=== PATIENT | male | born 1960 | race Caucasian/White ===

== ENCOUNTER 2019-04-19 07:24 | Day surgery (SDC) | payer OTHER ==
[~2019-04-19] VITALS: Ht 160 cm; Wt 61.9 kg
[2019-04-19 07:47] VITALS: BP 118/86; PULSE 83; TEMP 97.9
[2019-04-19 09:10] VITALS: BP 124/85; PULSE 82; TEMP 97
--- NOTE | 2019-04-19 09:10 | NUR ---
Pt arrived to post procedure room and received by LEISA Russell. Was given blueberry muffin and juice. VSS and FERNIEL.
[2019-04-19 09:25] VITALS: BP 123/81; PULSE 81
--- NOTE | 2019-04-19 09:25 | NUR ---
Pt successfully ate muffin and drank juice without N/V. This RN was assisted with translation by family members. Pt denies any abdominal discomfort and states that he is ready to go home.
[2019-04-19 09:40] VITALS: BP 120/84; PULSE 79
--- NOTE | 2019-04-19 09:40 | NUR ---
Pt ready to go home, and he meets criteria to be discharged. Reviewed with patient and family the discharge instructions including adverse signs/symptoms to watch for and the number to call for concerns that may arise. Pt and family express understanding of the discharge plan and deny further concerns or questions at this time. VSS and WNL
== END 2019-04-19 09:50 | disposition home or self-care (01) ==
LOC: SDCO 07:24
DX: Z12.11 Encounter for screening for malignant neoplasm of colon (principal); D12.8 Benign neoplasm of rectum
CPT/HCPCS: J2250; J2405; J3010; J7030

== ENCOUNTER → 2020-05-20 | Outpatient (CLI) | payer OTHER | LOC: COL.PUL 12:54 | DX: J45.909 Unspecified asthma, uncomplicated (principal) ==

== ENCOUNTER → 2020-06-25 | Outpatient (CLI) | payer OTHER | LOC: COL.PUL 12:58 | DX: J45.909 Unspecified asthma, uncomplicated (principal) | CPT/HCPCS: J7674 ==

== ENCOUNTER 2020-10-28 14:59 | Outpatient (RCR) | payer OTHER | END 2020-11-25 | disposition home or self-care (01) | LOC: WSOH | DX: M65.311 Trigger thumb, right thumb (principal); K21.9 Gastro-esophageal reflux disease without esophagitis; Z98.890 Other specified postprocedural states; Z88.0 Allergy status to penicillin; Z79.899 Other long term (current) drug therapy; Y99.0 Civilian activity done for income or pay | CPT/HCPCS: J3301 ==